=== PATIENT | female | born 1995 | race African-American/Black ===

== ENCOUNTER 2017-01-31 18:21 | Emergency (ER) | payer MEDICAID ==
[~2017-01-31] VITALS: Ht 170.2 cm; Wt 80.0 kg
[2017-01-31 18:25] VITALS: BP 129/74; PULSE 92; RESP 18; TEMP 99.3; O2SAT 100
--- NOTE | 2017-01-31 21:57 | PD ---
HPI Chief Complaint: Chest Pain Time Seen by Provider: 21:53 Travel History International Travel<30 days: No Contact w/Intl Traveler<30days: No Traveled to known affect area: No History of Present Illness HPI 21-year-old female withno significant past medical history presents for evaluation of chest pain. She reports that for 3-4 years every few months she gets a sharp midsternal chest pain that is constant and worse with deep inspiration. It tends to last for a few weeks and then spontaneously resolve. She is having similar pain since yesterday. She is not sure using any over-the- counter medication for symptom relief. She denies shortness of breath, cough, congestion, rash, recent travel, leg swelling. No history of DVT or PE. No contraceptive use. No recent trauma or surgery. Last menstrual period One week ago. No other complaints. PFSH Past Medical History ?: Not LMP: 12/2016 Social History Alcohol Use: No Tobacco Use: No Allergies-Medications (Allergen,Severity, Reaction): Coded Allergies: No Known Allergies (Unverified , 01/31/17) Reported Meds & Prescriptions Reported Meds & Active Scripts Active No Active Prescriptions or Reported Medications Review of Systems Except as stated in HPI: all other systems reviewed are Neg Physical Exam Narrative GENERAL: Well-developed well-nourished female in no acute distress SKIN: Warm and dry. HEAD: Atraumatic. Normocephalic. EYES: Pupils equal and round. No scleral icterus. No injection or drainage. ENT: No nasal bleeding or discharge. Mucous membranes pink and moist. NECK: Trachea midline. No JVD. CARDIOVASCULAR: Regular rate and rhythm. No murmur appreciated. RESPIRATORY: No accessory muscle use. Clear to auscultation. Breath sounds equal bilaterally. GASTROINTESTINAL: Abdomen soft, non-tender, nondistended. Hepatic and splenic margins not palpable. MUSCULOSKELETAL: No obvious deformities. No clubbing. No cyanosis. No edema. NEUROLOGICAL: Awake and alert. No obvious cranial nerve deficits. Motor grossly within normal limits. Normal speech. PSYCHIATRIC: Appropriate mood and affect; insight and judgment normal. Data Data Last Documented VS Vital Signs Date Time Temp Pulse Resp B/P (MAP) Pulse Ox O2 Delivery O2 Flow Rate FiO2 01/31/17 23:52 88 16 125/75 (92) 99 Room Air 01/31/17 18:25 99.3 Orders Orders Electrocardiogram (10/3/17 ) Chest, Single Ap (01/31/17 ) Ketorolac Inj (Toradol Inj) (01/31/17 22:00) Ed Urine Pregnancytest Poc (01/31/17 21:50) [facility] Medical Decision Making Medical Screen Exam Complete: Yes Emergency Medical Condition: Yes Medical Record Reviewed: Yes Differential Diagnosis Costochondritis, pleurisy, pericarditis, myocarditis, acute coronary syndrome, pulmonary embolism, pneumothorax, hemothorax, rib fracture Narrative Course 21-year-old female with intermittent episodes of sharp pleuritic chest pain for the past few 3 years. Physical examination is reassuring. She has some reproducible chest wall tenderness. She has no evidence of DVT. Her lungs are clear to auscultation. Her symptoms are consistent with musculoskeletal chest wall pain, possibly pleurisy or costochondritis. PE was considered in the differential however she is negative by perc criteria. The plan at this time would be to perform 12-lead EKG, chest x-ray. She will be given Toradol. EKG reveals normal sinus rhythm. Chest x-ray reveals no acute abnormalities. The patient is stable for discharge, outpatient follow-up with her primary care physician. Procedures EKG Prior to Arrival: Yes Diagnosis Primary Impression: Pleuritic chest pain Additional Instructions: Take [id number] ibuprofen as needed for pain per dosing instructions and the bottle. Follow-up closely with primary care physician. Return for any emergent medical conditions. Med/Other Pt SpecificInfo: No Change to Meds Scripts No Active Prescriptions or Reported Meds Disposition: 01 DISCHARGE HOME Condition: Stable Ramon Amezcua Jan 31, 2017 21:57
[2017-01-31] MEDS ORDERED: KETOROLAC TROMETHAMINE 60 MG/2 ML (IM) VIAL IM ONE (22:00)
--- NOTE | 2017-01-31 23:17 | RADRPT ---
EXAM DATE/TIME: 01/31/2017 21:49 [facility] COMPARISON: No previous studies available for comparison. INDICATIONS : Chest pain. MEDICAL HISTORY : None. SURGICAL HISTORY : None. ENCOUNTER: Initial ACUITY: 2 days PAIN SCORE: 10/10 LOCATION: Bilateral chest FINDINGS: A single view of the chest demonstrates the lungs to be symmetrically aerated without evidence of mas s, infiltrate or effusion. The cardiomediastinal contours are unremarkable. Osseous structures are intact. CONCLUSION: Normal examination. Abdirahman Childress MD on January 31, 2017 at 23:16 Board Certified Radiologist. This report was verified electronically.
[2017-01-31 23:52] VITALS: BP 125/75; PULSE 88; RESP 16; O2SAT 99
--- NOTE | 2017-02-01 10:23 | EKG ---
Date Performed: 01/31/2017 Time Performed: 18:34:17 PTAGE: 21 years EKG: Sinus rhythm NORMAL ECG NO PREVIOUS TRACING DOCTOR: Thomas Romano Interpretating Date/Time 02/01/2017 10:22:23
== END 2017-02-01 00:06 | disposition home or self-care (01) ==
LOC: NEPD 18:21
DX: R07.81 Pleurodynia (principal)
CPT/HCPCS: 71010; 84703; 93005; 96372; 99284; J1885